=== PATIENT | male | born 1945 | race Hispanic/Latino ===

== ENCOUNTER 2018-02-23 06:06 | Observation (INO) | payer OTHER ==
[2018-02-21 11:49] LABS: BASOPHILS % (AUTO) 0.9 % (0.0-5.0); EOSINOPHILS % (AUTO) 1.4 % (0.0-8.0); HEMATOCRIT 46.4 % (42-54); LYMPHOCYTES % (AUTO) 24.1 % (21.0-51.0); MEAN CORPUSCULAR HEMOGLOBIN 32.2 pg (27.0-33.0); MEAN CORPUSCULAR VOLUME 94.8 fL (79-99); MONOCYTES % (AUTO) 7.8 % (3.0-13.0); NEUTROPHILS % (AUTO) 65.8 % (40.0-77.0); PLATELET COUNT (AUTO) 281 K/uL (130-400); RED BLOOD CELL COUNT(AUTO) 4.89 MIL/uL (4.50-6.20); RED CELL DISTRIBUTION WIDTH 14.4 % (11.0-15.5)
[2018-02-21 11:53] VITALS: BP 113/66
[2018-02-21 11:59] LABS: POTASSIUM 4.3 mmol/L (3.5-5.1)
[2018-02-21 12:11] LABS: PARTIAL THROMBOPLASTIN TIME 26.7 SEC (26.3-35.5); PROTHROMBIN TIME 10.5 SEC (9.6-11.6)
[2018-02-23] VITALS (9 sets, daily range): BP systolic 94–117; BP diastolic 55–76
[~2018-02-23] VITALS: Ht 167.6 cm; Wt 83.5 kg
[~2018-02-23 06:06] MED LIST: ATOR20TA65 PO; CANA1TAB2 PO; CITA-107 PO; FOLI1TAB15 PO; LINA5TAB PO; LISI2.5T2 PO; PIOG15TA66 PO; SPIR25TA6 PO
[2018-02-23] MEDS ORDERED: BUPIVACAINE/PF 0.25% 30ML VIAL IJ ONE (07:12)
[2018-02-23] MEDS ORDERED: LIDOCAINE HCL 1% MDV 50ML VIAL ONE (07:12)
[2018-02-23] MEDS ORDERED: CEFAZOLIN SODIUM 1 GM VIAL ONE (07:12)
[2018-02-23] MEDS ORDERED: ISOVUE-300 100 ML VIAL IV ONE (07:12)
[2018-02-23] MEDS ORDERED: MIDAZOLAM HCL 1 MG/ML 2ML VIAL ONE ×2 (07:15→08:05)
[2018-02-23] MEDS ORDERED: MEPERIDINE-PF 25 MG/ML SYG ONE ×2 (07:15→08:05)
[2018-02-23] MEDS ORDERED: ACETAMINOPHEN 325 MG TAB PO PRN (08:45)
[2018-02-23] MEDS ORDERED: ACETAMINOPHEN-CODEINE 300/30MG TAB PO PRN ×2 (08:45)
[2018-02-23] MEDS: INVOKAMET PO SCH ×2 (09:00→21:00)
[2018-02-23] MEDS ORDERED: POTASSIUM CHLORIDE 20MEQ/100ML 100 ML IV PRN (09:30)
[2018-02-23] MEDS ORDERED: LIDOCAINE HCL-MPF 1% 2ML VIAL IVP PRN (09:30)
[2018-02-23] MEDS ORDERED: POTASSIUM CHLORIDE 10% ELIXIR 20 MEQ/15 ML UDCUP PO PRN (09:30)
[2018-02-23] MEDS ORDERED: POTASSIUM CHLORIDE 20 MEQ ERTAB PO PRN (09:30)
[2018-02-23] MEDS: SPIRONOLACTONE 25 MG TAB PO SCH (11:24)
[2018-02-23] MEDS: ATORVASTATIN CALCIUM 20 MG TABLET PO SCH (11:24)
[2018-02-23] MEDS: LISINOPRIL 2.5 MG TABLET PO SCH (11:24)
[2018-02-23] MEDS: FOLIC ACID 1 MG TABLET PO SCH (11:24)
[2018-02-23] MEDS: LINAGLIPTIN 5 MG TABLET PO SCH (11:24)
[2018-02-23] MEDS: INSULIN HUMULIN R 100 UNIT/ML 3ML SQ SCH ×3 (11:30→21:17)
[2018-02-23] MEDS: PIOGLITAZONE HCL 15 MG TAB PO SCH (11:32)
[2018-02-23] MEDS: SODIUM CHLORIDE 0.9% 1000ML 1,000 ML IV SCH ×2 (12:41→17:08)
[2018-02-23] MEDS: CARVEDILOL 3.125 MG TABLET PO SCH (20:31)
[2018-02-23] MEDS ORDERED: CITALOPRAM 20 MG TABLET PO SCH (21:00)
[2018-02-24 00:20] VITALS: BP 115/69
[2018-02-24 04:16] VITALS: BP 102/65
[2018-02-24] MEDS: INSULIN HUMULIN R 100 UNIT/ML 3ML SQ SCH ×2 (06:39→12:19)
[2018-02-24 07:00] VITALS: BP 94/64
[2018-02-24] MEDS: PIOGLITAZONE HCL 15 MG TAB PO SCH (08:15)
[2018-02-24] MEDS: SPIRONOLACTONE 25 MG TAB PO SCH (08:15)
[2018-02-24] MEDS: FOLIC ACID 1 MG TABLET PO SCH (08:15)
[2018-02-24] MEDS: ATORVASTATIN CALCIUM 20 MG TABLET PO SCH (08:15)
[2018-02-24] MEDS: CARVEDILOL 3.125 MG TABLET PO SCH (08:15)
[2018-02-24] MEDS: LINAGLIPTIN 5 MG TABLET PO SCH (08:16)
[2018-02-24] MEDS: LISINOPRIL 2.5 MG TABLET PO SCH (08:16)
[2018-02-24] MEDS: INVOKAMET PO SCH (08:20)
[2018-02-24 11:00] VITALS: BP 80/51
[2018-02-24 14:07] VITALS: BP 104/64
== END 2018-02-24 15:10 | disposition home or self-care (01) ==
LOC: DAH 06:06 → DAHIP 06:07 → DAH 06:07 → 2AH 09:08
PROVIDERS: ADMIT Internal Medicine; ATTEND Internal Medicine
DX: I25.5 Ischemic cardiomyopathy (principal); I25.10 Atherosclerotic heart disease of native coronary artery without angina pectoris; I11.0 Hypertensive heart disease with heart failure; I50.22 Chronic systolic (congestive) heart failure; E11.9 Type 2 diabetes mellitus without complications; E78.5 Hyperlipidemia, unspecified; E66.01 Morbid (severe) obesity due to excess calories; J84.10 Pulmonary fibrosis, unspecified; F17.210 Nicotine dependence, cigarettes, uncomplicated; Z95.1 Presence of aortocoronary bypass graft; Z95.810 Presence of automatic (implantable) cardiac defibrillator; Z88.5 Allergy status to narcotic agent
CPT/HCPCS: 33249; 36415; 71045; 80048; 82948 ×6; 85025; 85610; 85730; 96372 ×2; A4606; C1721; C1895 ×2; G0378 ×33; J0690; J1815 ×2; J2175; J2250; J3490 ×2; J7030; 99152; 99153; Q9967

== ENCOUNTER 2020-12-30 00:54 | Observation (INO) | payer OTHER ==
[~2020-12-30] VITALS: Ht 165.1 cm; Wt 85.7 kg
[2020-12-30 01:46] LABS: BASOPHILS % (AUTO) 0.9 % (0.0-5.0); EOSINOPHILS % (AUTO) 4.1 % (0.0-8.0); HEMATOCRIT 34.6 % (42-54); LYMPHOCYTES % (AUTO) 30.2 % (21.0-51.0); MEAN CORPUSCULAR HEMOGLOBIN 31.7 pg (27.0-33.0); MEAN CORPUSCULAR HGB CONC 33.5 g/dL (32.0-36.0); MEAN CORPUSCULAR VOLUME 94.5 fL (79-99); MONOCYTES % (AUTO) 7.3 % (3.0-13.0); NEUTROPHILS % (AUTO) 57.2 % (40.0-77.0); PLATELET COUNT (AUTO) 260 K/uL (130-400); RED BLOOD CELL COUNT(AUTO) 3.66 MIL/uL (4.50-6.20); RED CELL DISTRIBUTION WIDTH 13.5 % (11.0-15.5); WHITE BLOOD COUNT (AUTO) 6.3 K/uL (4.8-10.8)
[2020-12-30 01:52] LABS: CREATININE 1.4 mg/dL (0.5-1.5); POTASSIUM 4.1 mmol/L (3.5-5.1)
[2020-12-30 01:53] LABS: PROTHROMBIN TIME 10.9 SEC (9.6-11.6)
[2020-12-30 01:54] LABS: PARTIAL THROMBOPLASTIN TIME 26.5 SEC (26.3-35.5)
[2020-12-30 01:57] LABS: ALBUMIN 3.5 g/dL (3.5-5.0); BILIRUBIN,TOTAL 0.2 mg/dL (0.2-1.0); TOTAL PROTEIN, SERUM 7.2 g/dL (6.0-8.3)
[2020-12-30] MEDS ORDERED: NITROGLYCERIN 1GM/1 INCH PACKET TD ONE ×3 (03:06→17:20)
[2020-12-30] MEDS ORDERED: METOPROLOL TARTRATE 25 MG TAB PO SCH (09:45)
[2020-12-30] MEDS ORDERED: ASPIRIN 81MG TAB.CHEW PO SCH (09:45)
[2020-12-30] MEDS ORDERED: ATORVASTATIN CALCIUM 20 MG TABLET PO SCH (09:45)
[2020-12-30] MEDS ORDERED: ONDANSETRON HCL 4 MG/2 ML VIAL IV PRN (10:00)
[2020-12-30] MEDS ORDERED: LACTULOSE 20 GM/30 ML UDCUP PO PRN (10:00)
[2020-12-30] MEDS ORDERED: ACETAMINOPHEN 325 MG TAB PO PRN (10:00)
[2020-12-30] MEDS ORDERED: NITROGLYCERIN 0.4 MG SL TAB SL PRN (10:00)
[2020-12-30 10:06] LABS: CHOLESTEROL 148 mg/dL (<200); HDL CHOLESTEROL 43 mg/dL (29-71); LDL DIRECT 57 mg/dL (0-99); TRIGLYCERIDES 386 mg/dL (30-200)
[2020-12-30 10:19] LABS: HEMOGLOBIN A1C 9.2 % (4.0-6.0)
[2020-12-30] MEDS ORDERED: FAMOTIDINE 20MG TAB 20 MG TAB ONE ×2 (10:36→21:00)
[2020-12-30] MEDS ORDERED: METOPROLOL TARTRATE 50 MG TAB ONE (10:36)
[2020-12-30] MEDS ORDERED: ATORVASTATIN CALCIUM 40 MG TABLET ONE ×2 (10:36→21:01)
[2020-12-30] MEDS ORDERED: ASPIRIN 81MG TAB.CHEW ONE (10:36)
[2020-12-30] MEDS ORDERED: ENOXAPARIN SODIUM 40 MG/0.4 ML SYRINGE SQ ONE (10:37)
[2020-12-30] MEDS: FAMOTIDINE 20MG TAB 20 MG TAB PO SCH (21:00)
[2020-12-30] MEDS: METOPROLOL TARTRATE 25 MG TAB PO SCH (21:00)
[2020-12-30] MEDS: ATORVASTATIN CALCIUM 20 MG TABLET PO SCH (21:00)
[2020-12-30] MEDS ORDERED: METOPROLOL TARTRATE 25 MG TAB ONE (21:01)
[2020-12-31] MEDS: NITROGLYCERIN 1GM/1 INCH PACKET TD SCH ×2 (01:45→09:22)
[2020-12-31 04:44] VITALS: BP 119/63
[2020-12-31 06:50] LABS: BASOPHILS % (AUTO) 1.2 % (0.0-5.0); EOSINOPHILS % (AUTO) 2.7 % (0.0-8.0); HEMATOCRIT 35.8 % (42-54); LYMPHOCYTES % (AUTO) 27.7 % (21.0-51.0); MEAN CORPUSCULAR HEMOGLOBIN 32.4 pg (27.0-33.0); MEAN CORPUSCULAR HGB CONC 34.6 g/dL (32.0-36.0); MEAN CORPUSCULAR VOLUME 93.5 fL (79-99); MONOCYTES % (AUTO) 8.4 % (3.0-13.0); NEUTROPHILS % (AUTO) 59.7 % (40.0-77.0); PLATELET COUNT (AUTO) 255 K/uL (130-400); RED BLOOD CELL COUNT(AUTO) 3.83 MIL/uL (4.50-6.20); RED CELL DISTRIBUTION WIDTH 13.3 % (11.0-15.5); WHITE BLOOD COUNT (AUTO) 7.4 K/uL (4.8-10.8)
[2020-12-31 07:07] LABS: ALBUMIN 3.5 g/dL (3.5-5.0); BILIRUBIN,TOTAL 0.4 mg/dL (0.2-1.0); CREATININE 1.2 mg/dL (0.5-1.5); POTASSIUM 4.2 mmol/L (3.5-5.1); TOTAL PROTEIN, SERUM 7.3 g/dL (6.0-8.3)
[2020-12-31 08:00] VITALS: BP 109/67
[2020-12-31] MEDS ORDERED: ASPI-1197 PO (08:39)
[2020-12-31] MEDS ORDERED: ALLO100T PO (08:39)
[2020-12-31] MEDS ORDERED: FINA5TAB41 PO (08:39)
[2020-12-31] MEDS ORDERED: FURO20TA4 PO (08:39)
[2020-12-31] MEDS ORDERED: TAMS-1 PO (08:39)
[2020-12-31] MEDS: ASPIRIN 81MG TAB.CHEW PO SCH (09:21)
[2020-12-31] MEDS: METOPROLOL TARTRATE 25 MG TAB PO SCH (09:22)
[2020-12-31] MEDS: ENOXAPARIN SODIUM 40 MG/0.4 ML SYRINGE SQ SCH (09:23)
[2020-12-31 11:56] VITALS: BP 122/63
[2020-12-31 16:00] VITALS: BP 132/68
[2020-12-31] MEDS: REGADENOSON 0.4 MG/5 ML PF SYG IVP SCH (18:15)
[2020-12-31 19:54] VITALS: BP 119/65
[2020-12-31] MEDS: CARVEDILOL 6.25 MG TABLET PO SCH (20:20)
[2020-12-31] MEDS: FAMOTIDINE 20MG TAB 20 MG TAB PO SCH (20:21)
[2020-12-31] MEDS: ATORVASTATIN CALCIUM 20 MG TABLET PO SCH (20:21)
[2020-12-31 23:31] VITALS: BP 129/83
[2021-01-01 03:47] VITALS: BP 121/70
[2021-01-01 04:25] LABS: EOSINOPHILS % (AUTO) 3.5 % (0.0-8.0); HEMATOCRIT 37.8 % (42-54); LYMPHOCYTES % (AUTO) 26.9 % (21.0-51.0); MEAN CORPUSCULAR HEMOGLOBIN 31.7 pg (27.0-33.0); MEAN CORPUSCULAR HGB CONC 33.1 g/dL (32.0-36.0); MEAN CORPUSCULAR VOLUME 95.9 fL (79-99); MONOCYTES % (AUTO) 8.6 % (3.0-13.0); NEUTROPHILS % (AUTO) 59.7 % (40.0-77.0); PLATELET COUNT (AUTO) 276 K/uL (130-400); RED BLOOD CELL COUNT(AUTO) 3.94 MIL/uL (4.50-6.20); RED CELL DISTRIBUTION WIDTH 13.2 % (11.0-15.5); WHITE BLOOD COUNT (AUTO) 7.1 K/uL (4.8-10.8)
[2021-01-01 04:47] LABS: ALBUMIN 3.6 g/dL (3.5-5.0); BILIRUBIN,TOTAL 0.3 mg/dL (0.2-1.0); CREATININE 1.2 mg/dL (0.5-1.5); POTASSIUM 4.2 mmol/L (3.5-5.1); TOTAL PROTEIN, SERUM 7.6 g/dL (6.0-8.3)
[2021-01-01 08:11] VITALS: BP 118/74
[2021-01-01] MEDS ORDERED: NON-FORMULARY MEDICATION 1 EACH (Lisinopril 2.5 MG) PO SCH (09:00)
[2021-01-01] MEDS ORDERED: ASPIRIN 81MG TAB.CHEW PO SCH (09:00)
[2021-01-01] MEDS: SPIRONOLACTONE 25 MG TAB PO SCH (09:17)
[2021-01-01] MEDS: ASPIRIN 81MG TAB.CHEW PO SCH (09:17)
[2021-01-01] MEDS: LISINOPRIL 2.5 MG TABLET PO SCH (09:18)
[2021-01-01] MEDS: FUROSEMIDE 20 MG TABLET PO SCH (09:18)
[2021-01-01] MEDS: CARVEDILOL 6.25 MG TABLET PO SCH ×2 (09:18→20:35)
[2021-01-01] MEDS: ENOXAPARIN SODIUM 40 MG/0.4 ML SYRINGE SQ SCH (09:19)
[2021-01-01] MEDS ORDERED: METO-408 PO (10:01)
[2021-01-01] MEDS: REGADENOSON 0.4 MG/5 ML PF SYG IVP SCH (11:58)
[2021-01-01 12:00] VITALS: BP 106/67
[2021-01-01 16:00] VITALS: BP 99/83
[2021-01-01 20:00] VITALS: BP 116/60
[2021-01-01] MEDS: FAMOTIDINE 20MG TAB 20 MG TAB PO SCH (20:35)
[2021-01-01] MEDS: ATORVASTATIN CALCIUM 20 MG TABLET PO SCH (20:35)
[2021-01-02] VITALS: BP 99/52
[2021-01-02 04:00] VITALS: BP 100/55
[2021-01-02 05:21] LABS: BASOPHILS % (AUTO) 1.3 % (0.0-5.0); EOSINOPHILS % (AUTO) 3.7 % (0.0-8.0); HEMATOCRIT 35.1 % (42-54); LYMPHOCYTES % (AUTO) 28.5 % (21.0-51.0); MEAN CORPUSCULAR HEMOGLOBIN 31.5 pg (27.0-33.0); MEAN CORPUSCULAR HGB CONC 33.3 g/dL (32.0-36.0); MEAN CORPUSCULAR VOLUME 94.6 fL (79-99); NEUTROPHILS % (AUTO) 57.1 % (40.0-77.0); PLATELET COUNT (AUTO) 270 K/uL (130-400); RED BLOOD CELL COUNT(AUTO) 3.71 MIL/uL (4.50-6.20); RED CELL DISTRIBUTION WIDTH 13.2 % (11.0-15.5); WHITE BLOOD COUNT (AUTO) 7.6 K/uL (4.8-10.8)
[2021-01-02 05:55] LABS: ALBUMIN 3.5 g/dL (3.5-5.0); BILIRUBIN,TOTAL 0.5 mg/dL (0.2-1.0); CREATININE 1.2 mg/dL (0.5-1.5); POTASSIUM 3.9 mmol/L (3.5-5.1); TOTAL PROTEIN, SERUM 7.1 g/dL (6.0-8.3)
[2021-01-02] MEDS ORDERED: CARV6.25 PO (08:28)
[2021-01-02] MEDS: SPIRONOLACTONE 25 MG TAB PO SCH (09:29)
[2021-01-02] MEDS: ASPIRIN 81MG TAB.CHEW PO SCH (09:29)
[2021-01-02] MEDS: FUROSEMIDE 20 MG TABLET PO SCH (09:30)
[2021-01-02] MEDS: CARVEDILOL 6.25 MG TABLET PO SCH (09:30)
[2021-01-02] MEDS: LISINOPRIL 2.5 MG TABLET PO SCH (09:30)
[2021-01-02] MEDS: ENOXAPARIN SODIUM 40 MG/0.4 ML SYRINGE SQ SCH (09:32)
[2021-01-02 11:44] VITALS: BP 97/49
== END 2021-01-02 13:16 | disposition home or self-care (01) ==
LOC: EDH 00:54 → EDHIP 09:49 → 4BH 12-31 03:29
PROVIDERS: ADMIT Internal Medicine; ATTEND Internal Medicine
DX: M94.0 Chondrocostal junction syndrome [Tietze] (principal); I11.0 Hypertensive heart disease with heart failure; I50.42 Chronic combined systolic (congestive) and diastolic (congestive) heart failure; J84.10 Pulmonary fibrosis, unspecified; E11.9 Type 2 diabetes mellitus without complications; E78.5 Hyperlipidemia, unspecified; I25.2 Old myocardial infarction; I25.5 Ischemic cardiomyopathy; G30.9 Alzheimer's disease, unspecified; N40.0 Benign prostatic hyperplasia without lower urinary tract symptoms; I25.110 Atherosclerotic heart disease of native coronary artery with unstable angina pectoris; I35.0 Nonrheumatic aortic (valve) stenosis; E78.00 Pure hypercholesterolemia, unspecified; I21.4 Non-ST elevation (NSTEMI) myocardial infarction; Z95.1 Presence of aortocoronary bypass graft; Z95.0 Presence of cardiac pacemaker; Z86.73 Personal history of transient ischemic attack (TIA), and cerebral infarction without residual deficits; Z87.891 Personal history of nicotine dependence; Z79.4 Long term (current) use of insulin; Z79.82 Long term (current) use of aspirin; Z79.899 Other long term (current) drug therapy; Z88.5 Allergy status to narcotic agent
CPT/HCPCS: 36415 ×4; 71045; 78452; 80053 ×4; 80061; 82550; 82948 ×10; 83036; 84484 ×3; 85025 ×4; 85610; 85730; 93005 ×3; 93017; 93306; 96372 ×3; 99285; A9500 ×2; G0378 ×71; J1650 ×4; J2785; 96374